=== PATIENT | female | born 1990 | race Caucasian/White ===

== ENCOUNTER 2018-10-15 14:47 | Emergency (ER) | payer OTHER ==
[~2018-10-15] VITALS: Ht 162.6 cm; Wt 65.8 kg
[2018-10-15 14:47] VITALS: BP 112/80
--- NOTE | 2018-10-15 16:12 | NUR ---
initial contact with pt no distress
--- NOTE | 2018-10-15 16:36 | NUR ---
seen and evaluated by Dr Roach and david home with Rx
== END 2018-10-15 16:40 | disposition home or self-care (01) ==
LOC: ER 14:53
DX: L03.116 Cellulitis of left lower limb (principal); L03.115 Cellulitis of right lower limb; L03.114 Cellulitis of left upper limb; L03.113 Cellulitis of right upper limb; F10.10 Alcohol abuse, uncomplicated; F17.200 Nicotine dependence, unspecified, uncomplicated; Z88.0 Allergy status to penicillin
CPT/HCPCS: 99283; 99406; A4606; Z7610

== ENCOUNTER 2018-10-16 10:55 | Emergency (ER) | payer OTHER ==
[~2018-10-16] VITALS: Ht 162.6 cm; Wt 65.8 kg
[2018-10-16 10:55] VITALS: BP 118/66
[2018-10-16 11:24] LABS: APPEARANCE,URINE Slightly Cloudy (CLEAR); BILIRUBIN,URINE SMALL (NEGATIVE); BLOOD, URINE Trace-intact Ery/uL (NEGATIVE); COLOR,URINE Yellow (YELLOW); KETONES,URINE Trace (NEGATIVE); LEUKOCYTE ESTERASE ,URINE Small (NEGATIVE); NITRITE, URINE Negative (NEGATIVE); PH,URINE 6.5 (5.0-8.0); PROTEIN,URINE 30 mg/dl (NEGATIVE); UGLUCOSE Negative (NEGATIVE); UROBILINOGEN,URINE 0.2 EU/dL (0.2)
[2018-10-16 11:29] LABS: BACTERIA,URINE Many /HPF (None Seen); WBC,URINE 81-100 /HPF (0-3)
[2018-10-16 11:30] LABS: SQUAMOUS EPITHELIAL CELL,UR Many /HPF (None Seen)
[2018-10-16] MEDS ORDERED: AZITHROMYCIN 250 MG TABLET PO ONE (14:00)
[2018-10-16] MEDS ORDERED: CEFTRIAXONE 500 MG VIAL IM ONE (14:00)
[2018-10-16] MEDS ORDERED: AZITHROMYCIN 500 MG VIAL ONE (14:15)
[2018-10-16] MEDS ORDERED: AZITHROMYCIN 250 MG TABLET ONE (14:16)
[2018-10-16] MEDS ORDERED: CEFTRIAXONE 500 MG VIAL ONE (14:23)
== END 2018-10-16 14:48 | disposition home or self-care (01) ==
LOC: ER 11:00
DX: R21 Rash and other nonspecific skin eruption (principal); N39.0 Urinary tract infection, site not specified; F10.10 Alcohol abuse, uncomplicated; F17.200 Nicotine dependence, unspecified, uncomplicated; Y90.9 Presence of alcohol in blood, level not specified; Z11.3 Encounter for screening for infections with a predominantly sexual mode of transmission; Z88.0 Allergy status to penicillin
CPT/HCPCS: 81001; 84703; 87086; 87210; 96372; 99283; A4606; J0696; Z7610; 81000-TC; 87186-TC; J0456

== ENCOUNTER → 2018-10-20 | Emergency (ER) | payer OTHER ==
[~2018-10-20] VITALS: Ht 162.6 cm; Wt 60.8 kg
[2018-10-20 11:44] VITALS: BP 123/83
== END | disposition home or self-care (01) ==
LOC: ER 11:43
DX: Z76.0 Encounter for issue of repeat prescription (principal); R21 Rash and other nonspecific skin eruption; N39.0 Urinary tract infection, site not specified; F17.200 Nicotine dependence, unspecified, uncomplicated; Z88.0 Allergy status to penicillin; Z59.0 Homelessness
CPT/HCPCS: A4606; Z7610

== ENCOUNTER 2019-02-06 16:11 | Emergency (ER) | payer MEDICAID, OTHER ==
[~2019-02-06] VITALS: Ht 162.6 cm; Wt 79.4 kg
[2019-02-06 16:11] VITALS: BP 115/72
--- NOTE | 2019-02-06 20:13 | NUR ---
CALLED PT. NO RESPONSE
== END 2019-02-06 21:08 | disposition left against medical advice (07) ==
LOC: ER 16:11
DX: Z53.21 Procedure and treatment not carried out due to patient leaving prior to being seen by health care provider (principal); R21 Rash and other nonspecific skin eruption

== ENCOUNTER 2019-02-22 08:04 | Emergency (ER) | payer SELFPAY ==
[~2019-02-22] VITALS: Ht 160 cm; Wt 59.0 kg
--- NOTE | 2019-02-22 08:15 | NUR ---
PATIENT ARRIVED AT UNIT AMBULATORY W/ MULTIPLE COMPLAINTS, BILAT UPPER/LOWER EXTREMITY NUMBNESS. DR MILLAN AT BEDSIDE
[2019-02-22] MEDS ORDERED: LITHIUM CARBONATE (300 MG CAP) 300 MG CAPSULE PO STA (08:23)
[2019-02-22] MEDS ORDERED: TDAP [DIPH/PERTUSSIS/TET] 0.5 ML VIAL IM ONE ×2 (08:30→08:35)
--- NOTE | 2019-02-22 08:40 | NUR ---
ROLL FORMING MACHINE SET UP MECHANIC AT BEDSIDE
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
--- NOTE | 2019-02-22 08:50 | NUR ---
TAP CARD PROVIDED TO PATIENT
--- NOTE | 2019-02-22 08:56 | NUR ---
WITH NEW ORDER FROM DR MILLAN. LITHIUM 150MG PO X 1 DOSE. PHARMACY AWARE AND DELIVERED MEDICATION. GIVEN ORDERED
--- NOTE | 2019-02-22 08:59 | NUR ---
WITH NEW ORDER FOR TDAP IM. VERIFIED INFORMED CONSENT GIVEN BY PATIENT GIVEN ORDERED
[2019-02-22] MEDS ORDERED: LITHIUM CARBONATE 150 MG CAPSULE PO ONE (09:00)
[2019-02-22] MEDS ORDERED: LITHIUM CARBONATE (300 MG CAP) 300 MG CAPSULE PO ONE (09:00)
--- NOTE | 2019-02-22 09:05 | NUR ---
Patient discharged to home in stable condition. Written and verbal after care instructions given. Patient verbalizes understanding of instruction.
[2019-02-22 09:09] VITALS: BP 152/60
== END 2019-02-22 09:14 | disposition home or self-care (01) ==
LOC: ER 08:10
DX: F20.9 Schizophrenia, unspecified (principal); F17.200 Nicotine dependence, unspecified, uncomplicated; Z88.0 Allergy status to penicillin; Z59.0 Homelessness
CPT/HCPCS: 90715

== ENCOUNTER 2019-03-03 08:14 | Emergency (ER) | payer SELFPAY ==
[~2019-03-03] VITALS: Ht 160 cm; Wt 54.4 kg
[2019-03-03 08:14] VITALS: BP 117/73
--- NOTE | 2019-03-03 08:33 | NUR ---
Patient eloped from facility. ER MD notified.
== END 2019-03-03 08:46 | disposition left against medical advice (07) ==
LOC: ER 08:15
DX: R46.1 Bizarre personal appearance (principal); Z88.0 Allergy status to penicillin; Z59.0 Homelessness
CPT/HCPCS: Z7502

== ENCOUNTER 2019-03-06 18:25 | Emergency (ER) | payer SELFPAY ==
[~2019-03-06] VITALS: Ht 160 cm; Wt 54.4 kg
[2019-03-06 18:25] VITALS: BP 128/73
--- NOTE | 2019-03-06 18:50 | NUR ---
PATIENT IS NOT IN THE WAITING ROOM
== END 2019-03-06 18:50 | disposition left against medical advice (07) ==
LOC: ER 18:25
DX: Z53.21 Procedure and treatment not carried out due to patient leaving prior to being seen by health care provider (principal); F20.9 Schizophrenia, unspecified

== ENCOUNTER 2019-05-10 14:07 | Emergency (ER) | payer SELFPAY ==
[~2019-05-10] VITALS: Ht 162.6 cm; Wt 56.7 kg
--- NOTE | 2019-05-10 14:07 | NUR ---
PT MANJULA FROM THE STREET FOR AMS; C/O BACK PAIN; PT AAOX4, -SOB, NAD NOTED, VSS, PT ON MONITOR, VSS, PENDING MD AZEVEDO
--- NOTE | 2019-05-10 14:30 | NUR ---
CHANGED TO HOSPITAL GOWN,ALL BELONGINGS REMOVES, SECURITY CALLED FOR WANDING
--- NOTE | 2019-05-10 14:34 | NUR ---
REFUSING LAB DRAW/WORK UP, BARAK CONNELL CHEMICAL PROCESSING SUPERVISOR CALLED FOR PSYCH EVAL/CLEARANCE ORDERED
--- NOTE | 2019-05-10 14:35 | NUR ---
CALLED ART [phone]
--- NOTE | 2019-05-10 15:08 | NUR ---
IN & OUT CATHETER DONE. OK'D BY PATIENT, PT LYNN WELL. VARSHA, FEMALE EMT AT FOR ASSISTANCE. URINE COLLECTED & SENT TO LAB.
[2019-05-10 15:16] LABS: BASOPHILS % (AUTO) 0.4 % (0.0-2.0); EOSINOPHILS % (AUTO) 1.5 % (0.0-6.0); HEMATOCRIT 38 % (33-45); HEMOGLOBIN 12.9 g/dL (11.5-14.8); LYMPHOCYTES # (AUTO) 2.3 /CMM (0.8-4.8); LYMPHOCYTES % (AUTO) 29.4 % (20.0-44.0); MEAN CORPUSCULAR HGB CONC 34 g/dl (31.0-36.0); MEAN CORPUSCULAR VOLUME 90 fL (82-100); MONOCYTES # (AUTO) 0.6 /CMM (0.1-1.30); MONOCYTES % (AUTO) 7.4 % (2.0-12.0); NEUTROPHILS # (AUTO) 4.9 /CMM (1.8-8.9); NEUTROPHILS % (AUTO) 61.3 % (43.0-81.0); PLATELET COUNT (AUTO) 302 /CMM (150-450); RED BLOOD CELL COUNT(AUTO) 4.29 MIL/uL (4.0-5.2)
[2019-05-10 15:26] LABS: APPEARANCE,URINE Slightly Cloudy (CLEAR); BILIRUBIN,URINE Negative (NEGATIVE); BLOOD, URINE Negative Ery/uL (NEGATIVE); CALCIUM, SERUM 8.8 mg/dL (8.5-10.1); COLOR,URINE Yellow (YELLOW); CREATININE 0.7 mg/dL (0.6-1.3); KETONES,URINE Negative (NEGATIVE); LEUKOCYTE ESTERASE ,URINE Negative (NEGATIVE); NITRITE, URINE Negative (NEGATIVE); PH,URINE 7.5 (5.0-8.0); POTASSIUM 4.2 mmol/L (3.5-5.1); PROTEIN,URINE Negative (NEGATIVE); UGLUCOSE Negative (NEGATIVE); UROBILINOGEN,URINE 0.2 EU/dL (0.2)
[2019-05-10 15:31] LABS: ALBUMIN 3.3 g/dL (3.4-5.0); BILIRUBIN,TOTAL 0.2 mg/dL (0.2-1.0); TOTAL PROTEIN, SERUM 6.7 g/dL (6.4-8.2)
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
[2019-05-10 15:37] LABS: ALCOHOL, BLOOD < 3 mg/dL (0-0)
[2019-05-10 15:40] LABS: ACETAMINOPHEN < 2 ug/ml (10-30); SALICYLATE < 2.8 mg/dL (2.8-20.0)
[2019-05-10 17:38] VITALS: BP 121/60
--- NOTE | 2019-05-10 17:39 | NUR ---
Patient given written and verbal discharge instructions. Patient verbalizes understanding of instructions. Patient is ambulatory with steady gait. Refuses offer of correction placement. Patient given list of available shelters in surrounding area.
== END 2019-05-10 17:54 | disposition home or self-care (01) ==
LOC: ER 14:10
DX: R46.1 Bizarre personal appearance (principal); Z88.0 Allergy status to penicillin; Z59.0 Homelessness
CPT/HCPCS: 36415; 80048-TC; 80076-TC; 80305; 81000-TC; 83690-TC; 84703-TC; 85025-TC; G0480

== ENCOUNTER 2019-09-22 11:58 | Emergency (ER) | payer MEDICAID, OTHER ==
[~2019-09-22] VITALS: Ht 162.6 cm; Wt 63.5 kg
[2019-09-22 12:07] VITALS: BP 173/64
--- NOTE | 2019-09-22 12:25 | NUR ---
Patient discharged in custody in stable condition. Written and verbal after care instructions given. Patient verbalizes understanding of instruction.
== END 2019-09-22 12:27 ==
LOC: ER 12:03
DX: Z02.89 Encounter for other administrative examinations (principal); F20.9 Schizophrenia, unspecified; F17.200 Nicotine dependence, unspecified, uncomplicated; Z59.0 Homelessness; Z88.0 Allergy status to penicillin